=== PATIENT | male | born 1950 | race Caucasian/White ===

== ENCOUNTER 2021-06-16 09:59 | Emergency (ER) | payer MEDICARE ==
[~2021-06-16] VITALS: Ht 185.4 cm; Wt 85.2 kg
[2021-06-16] MEDS ORDERED: CONTRAST GIVEN. MC PRN (10:45)
[2021-06-16] MEDS ORDERED: IOHEXOL 350 MG/ML 100 ML VIAL. IV ONE (10:45)
[2021-06-16 10:47] LABS: BASO # 0.1 x10^3/uL (0.0-0.2); BASO % 1 % (0-3); EOS % 0 % (0-3); HEMATOCRIT 45.1 % (39.0-53.0); HEMOGLOBIN 15.2 g/dL (13.0-17.5); LYMPH # 0.4 x10^3/uL (1.0-4.8); LYMPH % 3 % (24-48); MEAN CORPUSCULAR HEMOGLOBIN 31 pg (25-35); MEAN CORPUSCULAR HGB CONC 34 g/dL (31-37); MEAN CORPUSCULAR VOLUME 91 fL (79-100); MONO # 1.1 x10^3/uL (0.0-1.1); MONO % 9 % (0-9); NEUT # 10.4 x10^3uL (1.8-7.7); NEUT % 86 % (31-73); PLATELET COUNT 188 x10^3/uL (140-400); RED BLOOD COUNT 4.96 x10^6/uL (4.30-5.70); RED CELL DISTRIBUTION WIDTH 13.5 % (11.5-14.5); WHITE BLOOD COUNT 12.1 x10^3/uL (4.0-11.0)
[2021-06-16 10:59] LABS: CREATININE 1.5 mg/dL (0.7-1.3); POTASSIUM 3.4 mmol/L (3.5-5.1)
[2021-06-16 11:05] LABS: ALBUMIN 3.7 g/dL (3.4-5.0); MAGNESIUM 1.6 mg/dL (1.8-2.4); TOTAL PROTEIN 7.5 g/dL (6.4-8.2)
--- NOTE | 2021-06-16 11:37 | RAD ---
Single view of the chest. 06/16/2021 11:29 AM Indication: Shortness of breath. Comparison: None available Findings: There is no focal consolidation. There is no pleural effusion or pneumothorax. The there is a large area of consolidation in the lateral left midlung. Focal rounded area of lucency is seen in the superior aspect of this consolidation. Findings may represent a pneumonia. Areas of cavitation or superimposed this could be present. The mass is considered less likely. No pneumothorax. No pleural effusion. Heart size is normal. Aortic calcification noted. Bony thorax is intact. IMPRESSION: Large left lateral lung consolidation with area of central lucency. Finding may represent pneumonia possibly with area of cavitation, versus superimposed cyst. CT chest with contrast recomme nded for further characterization. Electronically signed by: Roosevelt Metz MD (06/16/2021 11:34 AM) [id number]
[2021-06-16] MEDS ORDERED: HEPARIN for IV BOLUS 10,000 UNIT/10 ML VIAL. IV ONE (11:45)
[2021-06-16] MEDS ORDERED: ASPIRIN 325 MG TABLET PO ONE (11:45)
[2021-06-16] MEDS ORDERED: HEPARIN 25,000UTS/250ML PREMIX 250 ML IV PRN (11:45)
--- NOTE | 2021-06-16 11:51 | RAD ---
Study: CT CHEST WITH CONTRAST - PULMONARY ANGIOGRAM History: Pulmonary embolism Comparison: Chest radiograph 06/16/2021 Technique: Helical CT of the chest performed after the administration of intravenous contrast and ti med for angiographic evaluation of the pulmonary arteries per PE protocol. Coronal and sagittal 3D NE P reformations were obtained. One or more of the following individualized dose reduction techniques were utilized for this examinat ion: 1. Automated exposure control 2. Adjustment of the mA and/or kV according to patient size 3. Use of iterative reconstruction technique. Findings: Pulmonary Arteries: Contrast bolus is adequate. There multiple bilateral acute pulmonary emboli, over all moderate thrombus burden. This is greater on the left where there are pulmonary emboli extending from the distal main left pulmonary artery into the lobar and proximal segmental pulmonary arteries i n the upper and lower lobes. On the right, there are smaller pulmonary emboli in the distal lobar and segmental pulmonary arteries of the middle and lower lobes, and segmental pulmonary arteries of the upper lobes. There is flattening of the interventricular septum, which could indicate right heart str ain. Large wedge-shaped consolidation in the posterior left upper lobe consistent with a pulmonary in farct. Possible additional small pulmonary infarct in the right upper lobe, described below. Heart/Systemic Vasculature: The heart is normal in size. No pericardial effusion. Thoracic aorta is n ormal in caliber. No aortic dissection. Mediastinum: No mediastinal or hilar lymphadenopathy. Lungs: Large wedge-shaped consolidation in the posterior right upper lobe consistent with a pulmonary infarct. There are subpleural nodular opacities in the anterior right upper lobe with the largest co mponent measuring 2.2 x 1.2 cm (image 112, series 4). This could also be a pulmonary infarct or a pul monary nodule. There is a 4 mm nodule in the right lower lobe (image 111, series 4). Mild diffuse air way wall thickening. There is mild paraseptal and centrilobular emphysema. No pleural effusion. Neck/Axilla/Body Wall: No axillary lymphadenopathy. Upper Abdomen: There is a 2 cm left adrenal adenoma. Bones: No acute osseous abnormality. There is degenerative disc disease. The bones are diffusely pedro neralized. Miscellaneous: None IMPRESSION: 1. Positive exam for multiple bilateral acute pulmonary emboli, described above. Overall moderate th rombus burden. Possible right heart strain. 2. Large pulmonary infarct in the left upper lobe. 3. Subpleural nodularity in the anterior right upper lobe with the largest component measuring 2.2 c m. This could also be a pulmonary infarct, or a pulmonary nodule. Recommend follow-up CT chest after treatment to ensure resolution. 4. Mild paraseptal and centrilobular emphysema. FOR INTERNAL CODING PURPOSES Critical result: Findings discussed with DAVID EPSTEIN at 06/16/2021 11:30 AM. RESULT CODE: (C) 1. Electronically signed by: Emilee Root MD (06/16/2021 11:48 AM) [id number]
--- NOTE | 2021-06-16 11:53 | PHYS DOC ---
Past History Past Medical History: No Pertinent History Past Surgical History: No Surgical History Smoking: Cigarettes, Less than 1pk/day Alcohol Use: None Drug Use: Marijuana General Adult EDM: Chief Complaint: MULTIPLE COMPLAINTS HPI: HPI: Patient is a 71 year old male who is a current smoker presenting via POV with complaint of shortness of breath and left-sided posterior chest wall/shoulder pain. Patient reports that this morning when he woke up, he felt significantly short of breath and had sharp pain around his left scapula. He was seen in urgent care, where they ran "some tests" and advised that he come to the ER. On his way in to the emergency department, he states that he coughed up a "bloody ball of phlegm." Patient denies fever, chills, generalized weakness, chest pain, palpitations. Review of Systems: Review of Systems: Constitutional: See HPI Eyes: Denies change in visual acuity, visual field deficits or discharge HENT: Denies ear pain, nasal congestion or sore throat Respiratory: See HPI Cardiovascular: See HPI GI: Denies abdominal pain, nausea, vomiting, bloody stools or diarrhea : Denies dysuria or hematuria Musculoskeletal: See HPI Integument: Denies rash or other skin lesion Neurologic: Denies headache, focal weakness or sensory changes Current Medications: Current Meds: Current Medications Medications (Trade) Dose Ordered Sig/Nazia Route PRN Reason Start Time Stop Time Status Last Admin Dose Admin Iohexol (Omnipaque 350 Mg/ml) 100 ml 1X ONCE IV 06/16/21 10:45 06/16/21 10:46 DC 06/16/21 11:12 Heparin Sodium/ Dextrose 250 ml @ 13.6 mls/hr CONT PRN IV SEE I/O RECORD 06/16/21 11:45 06/16/21 14:01 DC 06/16/21 12:13 Heparin Sodium (Porcine) (Heparin Sodium) 6,800 unit 1X ONCE IV 06/16/21 11:45 06/16/21 11:52 DC 06/16/21 12:10 Aspirin (Charlie Aspirin) 325 mg 1X ONCE PO 06/16/21 11:45 06/16/21 11:52 DC 06/16/21 12:07 Morphine Sulfate (Morphine 2mg Syringe) 2 mg 1X ONCE IV 06/16/21 12:00 06/16/21 12:01 DC 06/16/21 12:07 Morphine Sulfate (Morphine 2mg Syringe) 2 mg 1X ONCE IV 06/16/21 14:00 06/16/21 14:01 DC 06/16/21 13:59 Allergies: Allergies: Allergies Coded Allergies Type Severity Reaction Last Updated Verified No Known Drug Allergies 06/16/21 No Physical Exam: PE: Constitutional: Well developed, well nourished, mild respiratory distress, non- toxic appearance. HENT: Normocephalic, atraumatic, bilateral external ears normal, nose normal. Eyes: EOMI, conjunctiva normal, no discharge. Neck: Normal range of motion, no stridor. Cardiovascular: Elevated heart rate with regular rhythm. No apparent murmurs, rubs or gallops. Lungs & Thorax: Thoracic expansion, mild increased work of breathing without retractions, decreased breath sounds on the left side. No wheezing, rales or rhonchi. Skin: Warm, dry, no erythema, no rash. Extremities: No tenderness, no cyanosis, no clubbing, ROM intact, no edema. Neurologic: Alert and oriented x4, normal motor function, normal sensory function, no focal deficits noted. Current Patient Data: Labs: Laboratory Tests Test 06/16/21 10:24 White Blood Count 12.1 x10^3/uL (4.0-11.0) Red Blood Count 4.96 x10^6/uL (4.30-5.70) Hemoglobin 15.2 g/dL (13.0-17.5) Hematocrit 45.1 % (39.0-53.0) Mean Corpuscular Volume 91 fL (79-100) Mean Corpuscular Hemoglobin 31 pg (25-35) Mean Corpuscular Hemoglobin Concent 34 g/dL (31-37) Red Cell Distribution Width 13.5 % (11.5-14.5) Platelet Count 188 x10^3/uL (140-400) Neutrophils (%) (Auto) 86 % (31-73) Lymphocytes (%) (Auto) 3 % (24-48) Monocytes (%) (Auto) 9 % (0-9) Eosinophils (%) (Auto) 0 % (0-3) Basophils (%) (Auto) 1 % (0-3) Neutrophils # (Auto) 10.4 x10^3uL (1.8-7.7) Lymphocytes # (Auto) 0.4 x10^3/uL (1.0-4.8) Monocytes # (Auto) 1.1 x10^3/uL (0.0-1.1) Eosinophils # (Auto) 0.0 x10^3/uL (0.0-0.7) Basophils # (Auto) 0.1 x10^3/uL (0.0-0.2) Prothrombin Time 10.3 SEC (9.4-11.4) Prothromb Time International Ratio 1.0 (0.9-1.1) Activated Partial Thromboplast Time 23 SEC (23-33) Sodium Level 139 mmol/L (136-145) Potassium Level 3.4 mmol/L (3.5-5.1) Chloride Level 101 mmol/L (98-107) Carbon Dioxide Level 27 mmol/L (21-32) Anion Gap 11 (6-14) Blood Urea Nitrogen 18 mg/dL (8-26) Creatinine 1.5 mg/dL (0.7-1.3) Estimated GFR (Cockcroft-Gault) 46.0 BUN/Creatinine Ratio 12 (6-20) Glucose Level 143 mg/dL (70-99) Calcium Level 9.0 mg/dL (8.5-10.1) Magnesium Level 1.6 mg/dL (1.8-2.4) Total Bilirubin 1.0 mg/dL (0.2-1.0) Aspartate Amino Transf (AST/SGOT) 26 U/L (15-37) Alanine Aminotransferase (ALT/SGPT) 24 U/L (16-63) Alkaline Phosphatase 79 U/L (46-116) Troponin I High Sensitivity 31 ng/L (4-75) VW-Hza-X-Type Natriuretic Peptide 447 pg/mL (0-124) Total Protein 7.5 g/dL (6.4-8.2) Albumin 3.7 g/dL (3.4-5.0) Albumin/Globulin Ratio 1.0 (1.0-1.7) Vital Signs: Vital Signs Date Time Temp Pulse Resp B/P (MAP) Pulse Ox O2 Delivery O2 Flow Rate FiO2 06/16/21 13:59 16 06/16/21 12:59 115 16 101/66 (78) 97 Nasal Cannula 3.0 06/16/21 12:14 114 18 97/51 (66) 97 Nasal Cannula 3.0 06/16/21 12:07 16 06/16/21 11:28 126 18 145/60 (88) 93 Room Air 06/16/21 10:15 98.5 108 16 147/56 (86) 91 Room Air EKG: EKG: EKG Interpreted by Dr. Maxwell at 1022: Elevated heart rate 122 bpm with no ectopic beats. No discernible P waves. QT 350 ms/QTc 500 ms. No STEMI. Abnormal EKG. Radiology/Procedures: Radiology/Procedures: PROCEDURE: PORTABLE CHEST 1V Single view of the chest. 06/16/2021 11:29 AM Indication: Shortness of breath. Comparison: None available Findings: There is no focal consolidation. There is no pleural effusion or pneumothorax. The there is a large area of consolidation in the lateral left midlung. Focal rounded area of lucency is seen in the superior aspect of this consolidation. Findings may represent a pneumonia. Areas of cavitation or superimposed this could be present. The mass is considered less likely. No pneumothorax. No pleural effusion. Heart size is normal. Aortic calcification noted. Bony thorax is intact. IMPRESSION: Large left lateral lung consolidation with area of central lucency. Finding may represent pneumonia possibly with area of cavitation, versus superimposed cyst. CT chest with contrast recommended for further characterization. Electronically signed by: Roosevelt Metz MD (06/16/2021 11:34 AM) [id number] PROCEDURE: CT ANGIOGRAPHY CHEST Study: CT CHEST WITH CONTRAST - PULMONARY ANGIOGRAM History: Pulmonary embolism Comparison: Chest radiograph 06/16/2021 Technique: Helical CT of the chest performed after the administration of intravenous contrast and timed for angiographic evaluation of the pulmonary arteries per PE protocol. Coronal and sagittal 3D MIP reformations were obtained. One or more of the following individualized dose reduction techniques were utilized for this examination: 1. Automated exposure control 2. Adjustment of the mA and/or kV according to patient size 3. Use of iterative reconstruction technique. Findings: Pulmonary Arteries: Contrast bolus is adequate. There multiple bilateral acute pulmonary emboli, overall moderate thrombus burden. This is greater on the left where there are pulmonary emboli extending from the distal main left pulmonary artery into the lobar and proximal segmental pulmonary arteries in the upper and lower lobes. On the right, there are smaller pulmonary emboli in the distal lobar and segmental pulmonary arteries of the middle and lower lobes, and segmental pulmonary arteries of the upper lobes. There is flattening of the interventricular septum, which could indicate right heart strain. Large wedge- shaped consolidation in the posterior left upper lobe consistent with a pulmonary infarct. Possible additional small pulmonary infarct in the right upper lobe, described below. Heart/Systemic Vasculature: The heart is normal in size. No pericardial effusion. Thoracic aorta is normal in caliber. No aortic dissection. Mediastinum: No mediastinal or hilar lymphadenopathy. Lungs: Large wedge-shaped consolidation in the posterior right upper lobe consistent with a pulmonary infarct. There are subpleural nodular opacities in the anterior right upper lobe with the largest component measuring 2.2 x 1.2 cm (image 112, series 4). This could also be a pulmonary infarct or a pulmonary nodule. There is a 4 mm nodule in the right lower lobe (image 111, series 4). Mild diffuse airway wall thickening. There is mild paraseptal and centrilobular emphysema. No pleural effusion. Neck/Axilla/Body Wall: No axillary lymphadenopathy. Upper Abdomen: There is a 2 cm left adrenal adenoma. Bones: No acute osseous abnormality. There is degenerative disc disease. The bones are diffusely demineralized. Miscellaneous: None IMPRESSION: 1. Positive exam for multiple bilateral acute pulmonary emboli, described above. Overall moderate thrombus burden. Possible right heart strain. 2. Large pulmonary infarct in the left upper lobe. 3. Subpleural nodularity in the anterior right upper lobe with the largest component measuring 2.2 cm. This could also be a pulmonary infarct, or a pulmonary nodule. Recommend follow-up CT chest after treatment to ensure resolution. 4. Mild paraseptal and centrilobular emphysema. FOR INTERNAL CODING PURPOSES Critical result: Findings discussed with DAVID EPSTEIN at 06/16/2021 11:30 AM. RESULT CODE: (C) 1. Electronically signed by: Emilee Root MD (06/16/2021 11:48 AM) [id number] Heart Score: C/O Chest Pain: No Course & Med Decision Making: Course & Med Decision Making Pertinent Labs and Imaging studies reviewed. (See chart for details) Patient is a 71-year-old male smoker who presents with shortness of breath, cough, hemoptysis and tachycardia. CT angio chest as well as labs ordered. Patient appears to have multiple bilateral pulmonary embolisms with a near complete left upper lobe infarct. Patient also has underlying nodule/cyst. Heparin bolus followed by drip initiated. transfer center was contacted for higher level of care. Patient was initially denied by pulmonary ICU physician, but was accepted by slug press operator, Dr. Durham. Patient hemodynamically stable on transfer, but did request additional pain medication before leaving [place]. Danielon Disclaimer: Bhargavi Disclaimer: This electronic medical record was generated, in whole or in part, using a voice recognition dictation system. Departure Departure: Impression: Primary Impression: Pulmonary embolism with infarction Additional Impressions: Bilateral pulmonary embolism Lung nodule seen on imaging study Disposition: 02 [facility]ORT [facility]M [facility] Condition: GUARDED Referrals: PCP,AMILCAR (PCP) BERRY GROVER June 16, 2021 11:53
[2021-06-16] MEDS ORDERED: MORPHINE SULFATE 2 MG/ML DISP.SYRIN. IV ONE ×2 (12:00→14:00)
[2021-06-16 12:59] VITALS: BP 101/66
--- NOTE | 2021-06-16 20:32 | EKG ---
[address] [address] Test Date: 2021-06-16 Test Time: 10:16:54 Pat Name: CAPO KIRBY Department: Room: Gender: M [employer]: : 1950 Requested By: BERRY GROVER Order Number: [id number] Reading MD: Eldaio Alfaro MD Measurements Intervals [place] Rate: 122 P: MA: QRS: 264 QRSD: 134 T: 62 QT: 350 QTc: 500 Interpretive Statements PROBABLE SINUS TACHYCARDIA RBBB LAFB Electronically Signed On 06-20-2021 9:06:58 CDT by Eladio Alfaro MD
== END 2021-06-16 14:00 | disposition short-term general hospital (02) ==
LOC: ER 09:59
DX: I26.99 Other pulmonary embolism without acute cor pulmonale (principal); R91.1 Solitary pulmonary nodule; F17.210 Nicotine dependence, cigarettes, uncomplicated
CPT/HCPCS: 36415; 71045; 71275; 80053; 83735; 83880; 84484; 85025; 85610; 85730; 93005; 96365; 96366; 96375; 96376; 99285; J1644; J2270; Q9967